=== PATIENT | male | born 1950 | race Caucasian/White ===

== ENCOUNTER → 2018-11-23 10:58 | Outpatient (CLI) | payer BC, MEDICARE, OTHER, SELFPAY ==
[2018-11-23 12:05] LABS: Add Manual Diff / Slide Review NO; Basophils Absolute Auto 100 /uL (0-100); Basophils Percent Auto 0.8 % (0-2); Eosinophils Absolute Auto 100 /uL (0-450); Eosinophils Percent Auto 0.7 % (2-4); Hematocrit 45.2 % (41-53); Hemoglobin 15.4 g/dL (13.5-17.5); Lymphocytes Absolute Auto 1900 /uL (1100-4500); Lymphocytes Percent Auto 22.9 % (25-40); Mean Corpuscular HGB Conc 34.1 % (30-36); Mean Corpuscular Hemoglobin 30.1 PG (26-34); Mean Corpuscular Volume 88.1 fL (80-100); Monocytes Absolute Auto 500 /uL (0-900); Monocytes Percent Auto 6.1 % (3-14); Neutrophils Absolute Auto 5800 /uL (1500-7000); Neutrophils Percent Auto 69.5 % (50-75); Platelet Count 271 X10^3/uL (150-400); Red Blood Cell Count 5.13 X10^6/uL (4.5-5.9); Red Cell Distribution Width 13.8 % (11.6-14.8); White Blood Cell Count 8.3 X10^3/uL (4.5-11.0)
[2018-11-23 12:28] LABS: Alanine Aminotransferase 21 IU/L (21-72); Albumin 4.5 g/dL (3.5-5.0); Albumin Globulin Ratio 1.6 (1.0-2.8); Alkaline Phosphatase 78 U/L (38-126); Aspartate Aminotransferase 20 IU/L (17-59); BUN Creatinine Ratio 22.5 (6-22); Bilirubin Total 0.8 mg/dL (0.2-1.3); Blood Urea Nitrogen 18 mg/dL (9-20); Calcium 9.5 mg/dL (8.4-10.2); Carbon Dioxide 27 mmol/L (22-32); Chloride 104 mmol/L (98-107); Cholesterol 162 mg/dL (140-199); Estimated Glomerular Filt Rate > 60.0 mL/min (>60); Globulin 2.9 g/dL (1.7-4.1); Glucose 106 mg/dL (80-110); HDL Cholesterol 43 mg/dL (40-60); HEMOLYSIS < 15 (0-50); LDL Cholesterol Calculated 99 mg/dL (<100); Potassium 4.9 mmol/L (3.4-5.1); Sodium 138 mmol/L (137-145); Total Protein 7.4 g/dL (6.3-8.2); Triglycerides 98 mg/dL (35-150)
[2018-11-23 12:33] LABS: Microalbumi Creatinin Ratio Ur 85.7 ug/mg CR (<30); Microalbumin Urine Random < 0.6 mg/dL (0-1.6)
[2018-11-23 12:53] LABS: Thyroid Stimulating Hormone 1.37 uIU/mL (0.47-4.68)
[2018-11-23 12:57] LABS: Prostate Specific Antigen 0.989 ng/mL (0.10-4.00)
== END ==
PROVIDERS: Family Provider Family Medicine; PCP Family Medicine; Visit Provider Family Medicine
DX: I10 Essential (primary) hypertension (principal); Z12.5 Encounter for screening for malignant neoplasm of prostate; Z13.0 Encounter for screening for diseases of the blood and blood-forming organs and certain disorders involving the immune mechanism; Z13.1 Encounter for screening for diabetes mellitus; Z13.220 Encounter for screening for lipoid disorders
CPT/HCPCS: 36415; 80053; 80061; 82043; 82570; 84153; 84443; 85025; G0103

== ENCOUNTER 2019-01-16 14:20 | Emergency (ER) | payer BC, MEDICARE, OTHER, SELFPAY ==
[2019-01-16 14:25] VITALS: BP 140/81; PULSE 80; RESP 14; TEMP 36.8; O2SAT 98
--- NOTE | 2019-01-16 14:56 | ED.ABDPAIN ---
HPI - Abdominal Pain General Chief Complaint: Abdominal Pain Stated Complaint: Painful bulge in abd Time Seen by Provider: 01/16/19 14:45 Source: patient Mode of arrival: ambulatory Limitations: no limitations History of Present Illness HPI narrative: 68-year-old male nonsmoker with history of hypertension presents with a chief complaint of a painful bulge in his left groin pain since Wednesday. He states it hurts worse with motion and heavy lifting and improves with rest. He denies nausea, vomiting. He denies urinary complaint. He states the bulge will push back in. MD complaint: abdominal pain Onset (ago): day(s) Pain Consistency: intermittent Location: LLQ Severity: moderate Quality: cramping and aching Radiation: none Migration to: no migration Relieving factors: rest Exacerbating factors: movement Related Data Previous Rx's Medication Instructions Recorded lisinopril 10 mg tablet 10 mg PO QDAY #90 tab 11/29/18 Allergies Allergy/AdvReac Type Severity Reaction Status Date / Time No Known Drug Allergies Allergy Verified 01/16/19 14:28 Review of Systems Constitutional Denies chills, Denies fever(s), Denies lethargy and Denies weakness Eyes Denies change in vision, Denies eye discharge, Denies irritation and Denies loss of vision ENT Ears, Nose, Mouth, and Throat: Denies change in voice, Denies neck pain and Denies sore throat Cardiovascular Denies chest pain, Denies irregular heart rhythm, Denies lightheadedness, Denies palpitations, Denies dyspnea, Denies dyspnea on exertion and Denies orthopnea Respiratory Denies cough, Denies dyspnea, Denies dyspnea on exertion and Denies wheezing Gastrointestinal Gastrointestinal: Denies abdominal pain, Denies change in bowel habits, Denies diarrhea, Denies nausea and Denies vomiting Genitourinary Denies hematuria, Denies flank pain, Denies urinary incontinence and Denies urinary urgency Comments: groin pain Musculoskeletal Denies neck pain Integumentary/Breasts Denies pruritus, Denies erythema, Denies rash and Denies wounds Neurologic Denies confusion, Denies loss of vision and Denies weakness Psychiatric Denies anxiety, Denies confusion, Denies depression, Denies homicidal ideation and Denies suicidal ideation Endocrine Denies palpitations Hematologic/Lymphatic Denies easy bruising Allergic/Immunologic Denies wheezing PFSH Social History Smoking Status: Former smoker Social History Smoking Status: Former smoker Exam Narrative Exam Narrative: GEN: AOx3 and in mild distress, anxious EYES: Pupils are equal, round, and reactive to light and accommodation. Extraoccular muscles are intact bilaterally. There is no subconjunctival hemorrhage or exudate. CHEST: Lungs are clear to auscultation bilaterally and free of wheezes, rales, or rhonchi. Heart rate is regular rhythm, there are no murmurs, clicks, rubs, or gallops. There is no chest wall tenderness. ABD: Abdomen is soft and nontender. There is no guarding or rebound. Bowel sounds are normal in all 4 quadrants. There is no mass or organomegaly. : Patient examined while standing. Tender reducible mass in left groin consistent with inguinal hernia. Examined again while laying and patient's knees bent, easily reduced. Normal bowel sounds, no redness or warmth EXT: Full painless ROM of all extremities with no loss of sensation or strength. SKIN: Warm, pink, and dry. No erythema or rash Initial Vital Signs Initial Vital Signs: Vital Signs Temperature 98.2 F 01/16/19 14:25 Pulse Rate 80 01/16/19 14:25 Respiratory Rate 14 01/16/19 14:25 Blood Pressure 140/81 01/16/19 14:25 Pulse Oximetry 98 01/16/19 14:25 Course Vital Signs - 8 hr 01/16/19 14:25 Temperature 98.2 F Pulse Rate 80 Respiratory Rate 14 Blood Pressure 140/81 Pulse Oximetry 98 MDM - Abdominal Pain MDM Narrative Medical decision making narrative: 68M with newly discovered L groin hernia which is easily reduced. No signs of obstruction, no redness or warmth. Extensive return precautions given and questions answered to his apparent satisfaction Discharge Plan Departure Patient Disposition: Home Clinical Impression: Inguinal hernia Qualifiers: Obstruction and gangrene presence: without obstruction or gangrene Laterality: unilateral Recurrence: non-recurrent Qualified Code(s): K40.90 - Unilateral inguinal hernia, without obstruction or gangrene, not specified as recurrent Discharge Date/Time: 01/16/19 15:20 Interventions: ED Discharge Assessment Last Done: 01/16/19 15:19 Instructions: DI for Groin Hernia Activity Restrictions/Additional Instructions: *You have been diagnosed with [acute right inguinal hernia] *What to do: *Take medications as directed *Follow up with [facility], call for an appointment. Let them know you were seen in the Emergency Department and that we ask that you be seen in follow up *Return to ER if you should have any new, worsening or concerning symptoms, such as [fever over 101 F, worsening pain, vomiting, inability to pass gas or have a bowel movement or other bothersome symptoms * avoid activities that buildup pressure in her abdomen such as lifting greater than 15 lb, straining on the toilet and other similar scenarios.] Prescriptions: No Action lisinopril 10 mg tablet 10 mg PO QDAY Qty: 90 RF: 3 Referrals: Jeff Alvarez MD [Primary Care Provider] - Stand Alone Forms: Work Release Note
== END 2019-01-16 15:20 | disposition home or self-care (01) ==
PROVIDERS: Emergency Provider Emergency Medicine; Family Provider Family Medicine; PCP Family Medicine
DX: K40.90 Unilateral inguinal hernia, without obstruction or gangrene, not specified as recurrent (principal)
CPT/HCPCS: 99282

== ENCOUNTER 2019-03-08 11:26 | Day surgery (SDC) | payer BC, MEDICARE, OTHER, SELFPAY ==
[2019-03-03 13:58] VITALS: BMI 27.3
[2019-03-08] VITALS (12 sets, daily range): BP systolic 101–150; BP diastolic 60–89; PULSE 59–88; RESP 10–20; TEMP 36.1–37.1; O2SAT 91–97; BMI 27.3
--- NOTE | 2019-03-08 12:12 | SUR.OPER ---
Supine on padded OR bed, head on pillow, arms secured on padded arm boards at <90 degrees abduction, legs uncrossed, safety belt at thigh, tape over blanket over lower legs.
[2019-03-08] MEDS: LACTATED RINGERS 1,000 ML 100 ML IV (12:29)
[2019-03-08] MEDS: GABAPENTIN 300 MG CAPSULE PO (12:30)
[2019-03-08] MEDS: ACETAMINOPHEN 325 MG TABLET 975 MG PO (12:30)
--- NOTE | 2019-03-08 12:32 | PM.HP.1 ---
History of Present Illness History of Present Illness Date Patient Seen: 03/08/19 Time Patient Seen: 12:33 Chief complaint: [id number] Narrative: pt seen and examined unchanged since recent clinic note plan for Left inguinal hernia repair Patient History Medical History (Updated 03/03/19 @ 14:06 by Talia Gooden RN) Hernia (Acute) HTN (hypertension) (Acute) Tinnitus (Acute) TMJ (temporomandibular joint disorder) (Acute) Surgical History (Updated 03/03/19 @ 14:06 by Talia Gooden RN) History of colonoscopy with polypectomy (Acute) Social History household members: spouse Smoking Status: Former smoker alcohol intake: current Family & Social History Social History: household members spouse Tobacco & Substance use: Smoking Status Former smoker alcohol intake current alcohol intake frequency 0-2 drinks per day Substance Use Type does not use Meds Home Medications and Allergies Home Medications Medication Instructions Recorded Confirmed Type lisinopril 10 mg tablet 10 mg PO QDAY #90 tab 11/29/18 03/03/19 Rx Allergies Allergy/AdvReac Type Severity Reaction Status Date / Time No Known Drug Allergies Allergy Verified 03/08/19 12:32 Exam Vital Signs (past 8 hours): - 03/08/19 12:15 Temperature 98.8 F Pulse Rate 59 L Respiratory Rate 19 Blood Pressure 150/89 H Pulse Oximetry 96 Oxygen Delivery Method Room Air
[2019-03-08] MEDS: CEFAZOLIN 2 GM/100 ML FROZ.PIGGY IV (12:45)
[2019-03-08] MEDS: VANCOMYCIN 1,000 MG VIAL 1000 MG TOP (13:09)
[2019-03-08] MEDS: BUPIVACAINE 0.25% W/ EPI 30 ML VIAL INJ (13:10)
--- NOTE | 2019-03-08 14:47 | SUR.PHASEI ---
Report given to Concetta Vazquez
--- NOTE | 2019-03-08 14:48 | PM.OP.1 ---
Operative Date/Time/Diagnoses Date of procedure: 03/08/19 Time of procedure: 14:48 Pre-op diagnosis: Large left inguinal hernia Post-op diagnosis: other (Large left indirect inguinal hernia) Procedure & Clinicians Procedure: LEFT side: Open anterior mesh inguinal hernia repair -Montse type Same procedure as scheduled: Yes Indications: 68-year-old man who came in with a large painful bulge in his left inguinal region -clinically determined to be a hernia Surgeon: Kameron Nettles Click Yes if Unassisted: Yes Anesthesia Type: General Operative Notes Findings: Large indirect inguinal hernia -left Closure Type: primary Specimen(s): none sent Prosthetic devices, grafts, tissues, transplants, or devices: [employer] PROLite Mesh -medium weight polypropylene -reference number [id number], lot - [id number] Estimated Blood Loss (mL): 10 Procedure in detail: Patient was brought to the operating room he was intubated without incident was prepped and draped in usual sterile fashion time-out was completed. An obliquely oriented incision was placed 2 finger breaths superior to Poupart's ligament. Local anesthetic was infiltrated into the region as well as the ileal inguinal nerve block performed. Then proceeded to make an approximately 6 cm incision through the skin and subcutaneous tissue. Jamir's fascia was identified and divided. The alveolar subcutaneous tissue was then bluntly dissected off of the aponeurosis of the external oblique overlying the inguinal canal. An obvious bulge was notable underneath the aponeurosis with a sizable amount of preperitoneal fat herniated through the external inguinal ring. A small wheal of local anesthetic was placed just underneath the aponeurosis of the external oblique within the inguinal canal to hydro dissect the area -the overlying fibers were then divided with a scalpel in a small beth. A Metzenbaum was then used to initially bluntly dissect the underlying structures from the aponeurosis of the external oblique and then these fibers were divided for the full length of the inguinal canal using the Metzenbaum. Snaps were applied to the cut edges. The the cord structures and hernia content were diced then dissected off of the inguinal floor and conjoined ligament utilizing a Kittner and blunt dissection -these were then circles with a Terry drain. -the shelving edge was skeletonized bluntly to that was well defined. In the process of dissecting out the above structures the ileal inguinal nerve was encountered -it was found to be significantly stretched and I anticipated it would be directly on the overlying mesh -as a consequence I dissected it out laterally and sacrificed it I then proceeded to open up the cremasteric fibers exploring the underlying inguinal contents -there was a large amount of herniated preperitoneal fat which was divided off the vas deferens and cord structures carefully to avoid injury to them-in the process of this a sizable indirect inguinal hernia sac was identified. The herniated preperitoneal fat once free of the surrounding structures was amputated at level of the internal ring with cautery. I then proceeded to isolate the hernia sac as well from the adjacent cord structures ensuring these were well preserved -with the sac now freed I opened it at its apex and inserted my finger into the hernia sac and into the peritoneal cavity in this way ensured there was no sliding component to the hernia. The hernia sac was then grasped with a clamp and twisted to prevent any intra-abdominal contents from inadvertently making their way into the sac. Using an 0 Vicryl suture the sac was then suture ligated at the level of the internal ring and the redundant hernia sac amputated. -this stump was then dunked inside the abdomen. Next inspected the floor of the inguinal canal -this was quite attenuated and bulging though no true direct hernia defect was identified. The floor was plicated using 0 Vicryl suture. Next medium polypropylene mesh was obtained it was cut in a keyhole fashion to fit the inguinal floor. It was soaked in vancomycin solution the medial edge was then tacked to the pubic tubercle utilizing a 2 0 Prolene suture-this suture was then used to run the shelving edge to well lateral of the internal ring. An additional 0 Vicryl stitch was placed medially as well. A total of 3 interrupted sutures of PDS were used to secure the superior edge of the mesh to the underlying conjoined tendon -these were tied loosely so as not to constrict the underlying tissue. At the lateral aspect of the keyhole the mesh tails were brought together with a 0 Prolene horizontal mattress suture -this was snug around the cord structures but not unduly tight. The lateral tails were then placed between the aponeurosis of the external oblique and the conjoined tender in pushing out laterally. Vancomycin solution was then used to irrigate the area hemostasis was found to be excellent. The aponeurosis of the external oblique was then closed over the cord structures and mesh utilizing 2 0 Vicryl. Jamir's fascia was closed with Vicryl interrupted sutures and skin was closed using 2 layers. This included deep dermal Vicryl so as well as a running for 0 Monocryl subcuticular suture. Skin glue was applied the patient was extubated and brought to PACU without incident. Complications: none Post-operative Condition: stable Disposition: PACU Plan for aftercare: PACU then home
[2019-03-08] MEDS: OXYCODONE IR 5 MG TABLET PO (15:05)
[2019-03-08] MEDS: fentaNYL 100 MCG/2 ML INJ 50 MCG IV (15:08)
== END 2019-03-08 16:27 | disposition home or self-care (01) ==
PROVIDERS: Family Provider Family Medicine; PCP Family Medicine; Visit Provider Surgery
PROC: (CPT 49505; principal; 2019-03-08 13:15)
DX: K40.90 Unilateral inguinal hernia, without obstruction or gangrene, not specified as recurrent (principal); I10 Essential (primary) hypertension
CPT/HCPCS: 49505; C1781; J0690; J1100; J1885; J2405; J2704; J3010

== ENCOUNTER → 2020-06-10 12:16 | Outpatient (CLI) | payer BC, MEDICARE, OTHER, SELFPAY ==
[2020-06-10 13:51] LABS: Creatinine Urine Random 133.3 mg/dL
[2020-06-10 13:53] LABS: Alanine Aminotransferase 25 IU/L (<50); Albumin 4.3 g/dL (3.5-5.0); Albumin Globulin Ratio 1.6 (1.0-2.8); Alkaline Phosphatase 85 U/L (38-126); Aspartate Aminotransferase 25 IU/L (17-59); BUN Creatinine Ratio 23.3 (6-22); Bilirubin Total 0.7 mg/dL (0.2-1.3); Blood Urea Nitrogen 17 mg/dL (9-20); Calcium 9.3 mg/dL (8.4-10.2); Carbon Dioxide 28 mmol/L (22-32); Chloride 102 mmol/L (98-107); Cholesterol 158 mg/dL (140-199); Estimated Glomerular Filt Rate > 60.0 mL/min (>60); Globulin 2.7 g/dL (1.7-4.1); Glucose 88 mg/dL (80-110); HDL Cholesterol 39 mg/dL (40-60); HEMOLYSIS < 15 (0-50); LDL Cholesterol Calculated 85 mg/dL (<100); Potassium 4.8 mmol/L (3.4-5.1); Sodium 136 mmol/L (137-145); Triglycerides 170 mg/dL (35-150)
[2020-06-10 13:56] LABS: Microalbumi Creatinin Ratio Ur 5.2 ug/mg CR (<30); Microalbumin Urine Random 0.7 mg/dL (0-1.6)
[2020-06-10 14:23] LABS: Prostate Specific Antigen Scrn 0.939 ng/mL (0.1-4.0)
== END ==
PROVIDERS: Family Provider Family Medicine; PCP Family Medicine; Referring Provider Family Medicine; Visit Provider Family Medicine
DX: E78.5 Hyperlipidemia, unspecified (principal); I10 Essential (primary) hypertension; Z12.5 Encounter for screening for malignant neoplasm of prostate
CPT/HCPCS: 36415; 80053; 80061; 82043; 82570; G0103

== ENCOUNTER → 2021-08-07 10:12 | Outpatient (CLI) | payer MEDICARE, OTHER, SELFPAY ==
[2021-08-07 11:07] LABS: Add Manual Diff / Slide Review NO; Basophils Absolute Auto 100 /uL (0-100); Eosinophils Absolute Auto 100 /uL (0-450); Eosinophils Percent Auto 1.1 % (2-4); Hematocrit 41.7 % (41-53); Hemoglobin 14.1 g/dL (13.5-17.5); Lymphocytes Absolute Auto 2000 /uL (1100-4500); Lymphocytes Percent Auto 24.9 % (25-40); Mean Corpuscular HGB Conc 33.8 % (30-36); Mean Corpuscular Hemoglobin 29.6 PG (26-34); Mean Corpuscular Volume 87.3 fL (80-100); Monocytes Absolute Auto 600 /uL (0-900); Monocytes Percent Auto 7.6 % (3-14); Neutrophils Absolute Auto 5300 /uL (1500-7000); Neutrophils Percent Auto 65.4 % (50-75); Platelet Count 296 X10^3/uL (150-400); Red Blood Cell Count 4.77 X10^6/uL (4.5-5.9); Red Cell Distribution Width 13.5 % (11.6-14.8); White Blood Cell Count 8.1 X10^3/uL (4.5-11.0)
[2021-08-07 11:20] LABS: Alanine Aminotransferase 31 IU/L (<50); Albumin 4.3 g/dL (3.5-5.0); Albumin Globulin Ratio 1.4 (1.0-2.8); Alkaline Phosphatase 70 U/L (38-126); Aspartate Aminotransferase 29 IU/L (17-59); BUN Creatinine Ratio 15.5 (6-22); Bilirubin Total 0.5 mg/dL (0.2-1.3); Blood Urea Nitrogen 11 mg/dL (9-20); Calcium 9.3 mg/dL (8.4-10.2); Carbon Dioxide 29 mmol/L (22-32); Chloride 105 mmol/L (98-107); Cholesterol 191 mg/dL (140-199); Estimated Glomerular Filt Rate > 60.0 mL/min (>60); Globulin 3.1 g/dL (1.7-4.1); Glucose 94 mg/dL (80-110); HDL Cholesterol 44 mg/dL (40-60); HEMOLYSIS < 15 (0-50); LDL Cholesterol Calculated 115 mg/dL (<100); Potassium 4.3 mmol/L (3.4-5.1); Sodium 139 mmol/L (137-145); Total Protein 7.4 g/dL (6.3-8.2); Triglycerides 162 mg/dL (35-150)
[2021-08-07 16:51] LABS: Creatinine Urine Random 100.2 mg/dL
[2021-08-07 16:55] LABS: Microalbumi Creatinin Ratio Ur 8.9 ug/mg CR (<30); Microalbumin Urine Random 0.9 mg/dL (0-1.6)
== END ==
PROVIDERS: Family Provider Family Medicine; PCP Family Medicine; Referring Provider Family Medicine; Visit Provider Family Medicine
DX: E78.49 Other hyperlipidemia (principal); I10 Essential (primary) hypertension
CPT/HCPCS: 36415; 80053; 80061; 82043; 82570; 85025

== ENCOUNTER → 2024-02-18 10:11 | Outpatient (CLI) | payer MEDICARE, OTHER, SELFPAY ==
[2024-02-18 10:32] LABS: Add Manual Diff / Slide Review NO; Basophils Absolute Auto 100 /uL (0-100); Basophils Percent Auto 1.2 % (0-2); Eosinophils Absolute Auto 100 /uL (0-450); Eosinophils Percent Auto 1.1 % (2-4); Hematocrit 42.2 % (41-53); Hemoglobin 14.6 g/dL (13.5-17.5); Lymphocytes Absolute Auto 2200 /uL (1100-4500); Mean Corpuscular HGB Conc 34.6 % (30-36); Mean Corpuscular Hemoglobin 29.5 PG (26-34); Mean Corpuscular Volume 85.3 fL (80-100); Monocytes Absolute Auto 600 /uL (0-900); Monocytes Percent Auto 8.1 % (3-14); Neutrophils Absolute Auto 4900 /uL (1500-7000); Neutrophils Percent Auto 61.6 % (50-75); Platelet Count 270 X10^3/uL (150-400); Red Blood Cell Count 4.94 X10^6/uL (4.5-5.9); Red Cell Distribution Width 14.1 % (11.6-14.8)
[2024-02-18 10:55] LABS: Alanine Aminotransferase 23 IU/L (<50); Albumin 4.4 g/dL (3.5-5.0); Albumin Globulin Ratio 1.6 (1.0-2.8); Alkaline Phosphatase 71 U/L (38-126); Aspartate Aminotransferase 24 IU/L (17-59); Bilirubin Total 0.6 mg/dL (0.2-1.3); Blood Urea Nitrogen 15 mg/dL (9-20); Calcium 9.1 mg/dL (8.4-10.2); Carbon Dioxide 24 mmol/L (22-32); Chloride 106 mmol/L (98-107); Cholesterol 174 mg/dL (140-199); Estimated Glomerular Filt Rate > 60 mL/min (>60); Globulin 2.8 g/dL (1.7-4.1); Glucose 104 mg/dL (80-110); HDL Cholesterol 44 mg/dL (40-60); HEMOLYSIS < 15 (0-50); LDL Cholesterol Calculated 104 mg/dL (<100); Potassium 4.3 mmol/L (3.4-5.1); Sodium 140 mmol/L (137-145); Total Protein 7.2 g/dL (6.3-8.2); Triglycerides 131 mg/dL (35-150)
[2024-02-18 10:57] LABS: Creatinine Urine Random 116.66 mg/dL
[2024-02-18 11:01] LABS: Microalbumin Urine Random 0.8 mg/dL (0-1.6)
[2024-02-18 11:26] LABS: Prostate Specific Antigen Scrn 1.18 ng/mL (0.1-4.0)
[2024-02-18 11:27] LABS: TSH w/ Reflex to FT4 2.77 uIU/mL (0.47-4.68)
[2024-02-18 11:44] LABS: Hep C Virus Ab w/Reflex Quant NEGATIVE s/c (NEGATIVE)
[2024-02-19 05:37] LABS: Apolipoprotein B 84 mg/dL (<90)
== END ==
LOC: LAB 10:12
PROVIDERS: Family Provider Family Medicine; PCP Family Medicine; Referring Provider Family Medicine; Visit Provider Family Medicine
DX: Z00.00 Encounter for general adult medical examination without abnormal findings (principal); E78.5 Hyperlipidemia, unspecified; Z12.5 Encounter for screening for malignant neoplasm of prostate; I10 Essential (primary) hypertension; Z12.11 Encounter for screening for malignant neoplasm of colon
CPT/HCPCS: 36415; 80053; 80061; 82043; 82172; 82570; 84443; 85025; 86803; G0103

== ENCOUNTER → 2025-01-05 09:53 | Outpatient (CLI) | payer MEDICARE, OTHER, SELFPAY ==
[2025-01-05 10:36] LABS: Add Manual Diff / Slide Review NO; Hematocrit 43.7 % (41-53); Hemoglobin 15.3 g/dL (13.5-17.5); Lymphocytes Absolute Auto 1900 /uL (1100-4500); Mean Corpuscular HGB Conc 34.9 % (30-36); Mean Corpuscular Hemoglobin 29.9 PG (26-34); Mean Corpuscular Volume 85.8 fL (80-100); Platelet Count 276 X10^3/uL (150-400)
[2025-01-05 11:11] LABS: HEMOLYSIS < 15 (0-50); Iron 159 ug/dL (49-181)
[2025-01-05 11:13] LABS: Alanine Aminotransferase 29 IU/L (<50); Albumin 4.6 g/dL (3.5-5.0); Albumin Globulin Ratio 1.7 (1.0-2.8); Alkaline Phosphatase 77 U/L (38-126); Blood Urea Nitrogen 18 mg/dL (9-20); Calcium 9.3 mg/dL (8.4-10.2); Carbon Dioxide 25 mmol/L (22-32); Chloride 101 mmol/L (98-107); Cholesterol 182 mg/dL (140-199); Estimated Glomerular Filt Rate > 60 mL/min (>60); Globulin 2.7 g/dL (1.7-4.1); Glucose 114 mg/dL (70-99); HDL Cholesterol 42 mg/dL (40-60); HEMOLYSIS < 15 (0-50); Potassium 4.7 mmol/L (3.4-5.1); Sodium 136 mmol/L (137-145); Total Protein 7.3 g/dL (6.3-8.2); Triglycerides 121 mg/dL (35-150)
[2025-01-05 11:25] LABS: Percent Iron Saturation 43 % (20-50); Total Iron Binding Capacity 369 ug/dL (261-462)
[2025-01-05 11:27] LABS: Transferrin 302 mg/dL (206-381)
[2025-01-05 11:42] LABS: TSH w/ Reflex to FT4 2.34 uIU/mL (0.47-4.68)
[2025-01-05 11:48] LABS: Ferritin 29 ng/mL (18-464)
[2025-01-05 11:57] LABS: Microalbumi Creatinin Ratio Ur 6.0 ug/mg CR (<30)
[2025-01-05 12:18] LABS: Folate 13.6 ng/mL (2.76-20.0); Vitamin B12 230 pg/mL (239-931)
== END ==
PROVIDERS: PCP Family Medicine; Referring Provider Family Medicine; Visit Provider Family Medicine
DX: E78.49 Other hyperlipidemia (principal); Z12.5 Encounter for screening for malignant neoplasm of prostate; I10 Essential (primary) hypertension; R55 Syncope and collapse
CPT/HCPCS: 36415; 80053; 80061; 82043; 82172; 82570; 82607; 82728; 82746; 83540; 83550; 84443; 85025; G0103

== ENCOUNTER → 2025-01-11 13:33 | Outpatient (CLI) | payer MEDICARE, OTHER, SELFPAY | LOC: CAR 13:36 | PROVIDERS: PCP Family Medicine; Referring Provider Family Medicine; Visit Provider Family Medicine | DX: R55 Syncope and collapse (principal) | CPT/HCPCS: 93246 ==